=== PATIENT | male | born 1955 | race Caucasian/White ===

== ENCOUNTER 2018-11-05 17:05 | Emergency (ER) | payer BC ==
[~2018-11-05] VITALS: Ht 175.3 cm; Wt 126.6 kg
[2018-11-05] MEDS ORDERED: ALBUTEROL/IPRATROPIUM 3 ML NEB NEB ONE (18:00)
--- NOTE | 2018-11-05 18:19 | Diagnostic Imaging Report ---
EXAMINATION: CXR 2 VIEW - HOPD INDICATION: Not feeling well. Cough. Congestion. COMPARISON: None FINDINGS: TUBES and LINES: None. LUNGS: Lungs are well inflated. Mild bilateral peribronchial cuffing. There is no evidence of pneumonia or pulmonary edema. PLEURA: No pleural effusion or pneumothorax. HEART AND MEDIASTINUM: The cardiomediastinal silhouette is unremarkable. BONES AND SOFT TISSUES: There are degenerative changes in the thoracic spine. Soft tissues are unremarkable. UPPER ABDOMEN: No free air under the diaphragm. IMPRESSION: Mild bilateral peribronchial cuffing, which could represent viral etiology or reactive airway disease. Signed by: Dr. Gautam Yung M.D. on 11/05/2018 6:15 PM
[2018-11-05] MEDS ORDERED: PREDNISONE 20 MG TAB PO ONE ×2 (18:45)
== END 2018-11-05 19:24 | disposition home or self-care (01) ==
LOC: FSED 17:05
DX: R05 Cough (principal); R07.89 Other chest pain; J20.9 Acute bronchitis, unspecified; I10 Essential (primary) hypertension
CPT/HCPCS: 71046; 99284; J7512

== ENCOUNTER 2018-12-01 17:38 | Emergency (ER) | payer BC ==
[~2018-12-01] VITALS: Ht 177.8 cm; Wt 128.4 kg
--- OUTSIDE RECORDS SUMMARY | 2018-12-01 17:41 | XMS REPORT ---
Author Author [facility] Address Unknown Phone Unavailable Care Team Providers Care Blackjack Supervisor Name Role Phone Home BURRIS Unavailable Unavailable Problems This patient has no known problems. Allergies, Adverse Reactions, Alerts This patient has no known allergies or adverse reactions. Medications This patient has no known medications. Results Test Description Test Time Test Comments Text Results Atomic Results Result Comments CXR 2 VIEW - HOPD 2018-11-05 18:14:00 [place] [address] Patient Name: DEVIN DERAS JR MR #: [id number] : 1955 Age/Sex: 63/M Req #: [id number] Adm Physician: Ordered by: CAMPBELL BURRIS MD Report #: [id number] Location: [facility] Room/Bed: Procedure: [id number] HOPD/CXR 2 VIEW - HOPD Exam Date: 11/05/18 Exam Time: 1809 REPORT STATUS: Signed EXAMINATION: CXR 2 VIEW - HOPD INDICATION: Not feeling well. Cough. Congestion. COMPARISON: None FINDINGS: TUBES and LINES: None. LUNGS: Lungs are well inflated. Mild bilateral peribronchial cuffing. There is no evidence of pneumonia or pulmonary edema. PLEURA: No pleural effusion or pneumothorax. HEART AND MEDIASTINUM: The cardiomediastinal silhouette is unremarkable. BONES AND SOFT TISSUES: There are degenerative changes in the thoracic spine. Soft tissues are unremarkable. UPPER ABDOMEN: No free air under the diaphragm. IMPRESSION: Mild bilateral peribronchial cuffing, which could represent viral etiology or reactive airway disease. Signed by: Dr. Sunil Yung M.D. on 11/05/2018 6:15 PM Dictated By: SUNIL YUNG MD 14 Transcribed By: MCKAY on 11/05/181814 COPY TO: CAMPBELL BURRIS MD
== END 2018-12-01 18:38 | disposition home or self-care (01) ==
LOC: FSED 17:38
DX: R05 Cough (principal); J20.8 Acute bronchitis due to other specified organisms
CPT/HCPCS: 99282